=== PATIENT | male | born 1995 | race African-American/Black ===

== ENCOUNTER 2017-02-09 08:04 | Emergency (ER) | payer SELFPAY ==
[~2017-02-09] VITALS: Ht 167.6 cm; Wt 61.3 kg
[2017-02-09 08:13] VITALS: BP 115/66
[2017-02-09 09:08] LABS: BLOOD UREA NITROGEN 19 mg/dL (7-18)
[2017-02-09 09:21] LABS: PATH.CAST-FLAG NOT PRESENT; SPERM-FLAG NOT PRESENT; SRC-FLAG NOT PRESENT; XTAL-FLAG NOT PRESENT; YLC-FLAG NOT PRESENT
== END 2017-02-09 10:00 | disposition home or self-care (01) ==
LOC: ED 09:54
DX: N34.1 Nonspecific urethritis (principal)
CPT/HCPCS: 36415; 80048; 81001; 82040; 85025; 99284